=== PATIENT | female | born 1970 | race Caucasian/White ===

== ENCOUNTER 2017-10-28 11:43 | Emergency (ER) | payer SELFPAY ==
[2017-10-28 11:52] VITALS: BP 112/80; PULSE 94; TEMP 98.4; BMI 28.3
--- NOTE | 2017-10-28 12:28 | PDOC ---
History of Present Illness - General Chief Complaint: Back Pain Stated Complaint: BACK PAIN Time Seen by Provider: 10/28/17 12:12 History Source: Patient Exam Limitations: No Limitations - History of Present Illness Initial Comments: 10/28/17 12:53 Patient is a 47-year-old female who presents emergency department today complaining of low back pain. Patient states that her pain began on Saturday. She states she was at work when she lifted something heavy. She works removing asbestos. She states when she turned [id number] the pain is worse. Pt. states standing makes her pain better. She has not taken any motrin or tylenol. She also states that she feels pins and needles down her left leg. Denies weakness, gait changes, bladder or bowel incontinence, saddle anesthesia. Past History - Travel Traveled outside of the country in the last 30 days: No Close contact w/someone who was outside of country & ill: No - Past Medical History Allergies/Adverse Reactions: Allergies Allergy/AdvReac Type Severity Reaction Status Date / Time No Known Allergies Allergy Verified 10/28/17 11:51 Home Medications: Ambulatory Orders Cyclobenzaprine HCl [Flexeril -] 10 mg PO HS #10 tablet 10/28/17 Ibuprofen 800 mg PO TID #30 tablet 10/28/17 COPD: No - Suicide/Smoking/Psychosocial Hx Smoking History: Never smoked Review of Systems - Review of Systems Able to Perform ROS?: Yes Comments:: 10/28/17 12:28 CONSTITUTIONAL: Absent: fever, chills, diaphoresis, generalized weakness, malaise, loss of appetite MUSCULOSKELETAL: Present: low back pain Absent: myalgia, arthralgia, joint swelling SKIN: Absent: rash, itching, pallor NEUROLOGIC: Absent: headache, focal weakness or paresthesias, dizziness, unsteady gait, seizure, mental status changes, bladder or bowel incontinence Is the patient limited Finnish proficient: No *Physical Exam - Vital Signs Last Vital Signs Temp Pulse Resp BP Pulse Ox 98.4 F 94 H 18 112/80 100 10/28/17 11:51 10/28/17 11:51 10/28/17 11:51 10/28/17 11:51 10/28/17 11:51 - Physical Exam Comments: 10/28/17 12:28 GENERAL: Well developed, well nourished. Awake and alert. No acute distress. MUSCULOSKELETAL TTP of the paraspinous muscles b/l at the level of L4. (+) straight leg raise on the L. Normal range of motion at all joints. No bony deformities or tenderness. No CVA tenderness. EXTREMITIES: No cyanosis. No clubbing. No edema. No calf tenderness. SKIN: Warm and dry. Normal capillary refill. No rashes. No jaundice. NEUROLOGICAL: Alert, awake, appropriate. Cranial nerves 2-12 intact. No deficits to light touch and temperature in face, upper extremities and lower extremities. No motor deficits in the in face, upper extremities and lower extremities. Normoreflexic in the upper and lower extremities. Normal speech. Toes are down- going bilaterally. Gait is normal without ataxia. Medical Decision Making - Medical Decision Making 10/28/17 12:57 Patient is a 47-year-old female who presents emergency department today for low back pain after lifting a heavy bag while at work. Denies trauma. No midline tenderness. Patient is neurologically intact with no focal deficits. Most likely a muscular strain with sciatica on the left. We'll treat with Toradol at this time. Supportive treatment recommended. Return precautions given. Orthostatic follow-up given. Patient understands all discharge instructions and all questions were answered. *DC/Admit/Observation/Transfer Diagnosis at time of Disposition: Low back pain Qualifiers: Chronicity: acute Back pain laterality: bilateral Sciatica presence: with sciatica Sciatica laterality: sciatica of left side Qualified Code(s): M54.42 - Lumbago with sciatica, left side - Discharge Dispostion Disposition: HOME Condition at time of disposition: Stable Admit: No - Prescriptions Prescriptions: Cyclobenzaprine HCl [Flexeril -] 10 mg PO HS #10 tablet Ibuprofen 800 mg PO TID #30 tablet - Referrals Referrals: Tono Byers MD [Staff Physician] - - Patient Instructions Printed Discharge Instructions: DI for Low Back Pain Additional Instructions: You have low back pain due to a muscle spasm. Please take ibuprofen 800 mg 3 times a day not to exceed 3000 mg a day. You were also prescribed Flexeril. Please take the medication before you go to bed. Do not drive after taking this medication as it may make you sleepy. You may use warm compresses on your back to help with her symptoms. Please follow-up with your primary care doctor. If your symptoms do not resolve in 3-5 days, follow-up with orthopedics. A referral has been provided for you. Avoid lifting more than 10lbs until your symptoms resolve. Return to the emergency department if you have worsening back pain, bladder or bowel incontinence, numbness and tingling in her legs, changes in the way you walk, or any new or worsening symptoms. Usted tiene dolor de espalda baja debido a un espasmo muscular. [place] ibuprofeno 800 mg 3 veces al da que no exceda los 3000 mg por da. Tambin te recetaron Flexeril. Por favor tome la medicina antes de acostarse. No conduzca despus de jayson jacky medicamento ya que puede causarle sueo. Puede usar compresas tibias en zhang espalda para ayudar con derrick sntomas. Por favor barbara un seguimiento con zhang mdico de atencin primaria. Si derrick sntomas no se resuelven en 3-5 lenz, barbara un seguimiento con ortopedia. Vida referencia [place] sido proporcionada para usted. Regrese al servicio de urgencias si tiene un empeoramiento del dolor de espalda , incontinencia de vejiga o intestino, entumecimiento y hormigueo en las piernas , cambios en la forma de caminar o cualquier sntoma nuevo o que empeora. Print Language: RUSSIAN - Post Discharge Activity Forms/Work/School Notes: Back to Work
[2017-10-28] MEDS ORDERED: KETOROLAC TROMETHAMINE 60 MG/2 ML VIAL IM ONE (12:41)
[2017-10-28] MEDS ORDERED: KETOROLAC TROMETHAMINE 60 MG/2 ML VIAL ONE (12:42)
== END 2017-10-28 12:53 | disposition home or self-care (01) ==
LOC: JERFT 11:43
PROC: 3E0233Z Introduction of Anti-inflammatory into Muscle, Percutaneous Approach (ICD-10-PCS; principal; 2017-10-28)
DX: S39.012A Strain of muscle, fascia and tendon of lower back, initial encounter (principal); M54.42 Lumbago with sciatica, left side; X50.0XXA Overexertion from strenuous movement or load, initial encounter; Y93.89 Activity, other specified; Y92.63 Factory as the place of occurrence of the external cause; Y99.0 Civilian activity done for income or pay
CPT/HCPCS: 99281-25